=== PATIENT | female | born 1990 | race Caucasian/White ===

== ENCOUNTER 2023-04-20 09:56 | Outpatient (REF) | payer MEDICAID, SELFPAY ==
[2023-04-20 11:35] LABS: Hematocrit 37.4 % (37.0-47.0); Hemoglobin 12.6 g/dl (12.0-16.0); Mean Corpuscular HGB Conc 33.7 g/dl (31.0-35.0); Mean Corpuscular Hemoglobin 31.1 pg (27.0-33.0); Mean Corpuscular Volume 92.3 fL (80.0-98.0); Mean Platelet Volume 10.5 fL (9.4-12.3); Platelet Count 235 X10*3/uL (160-400); Red Blood Count 4.05 X10*6/uL (4.20-5.50); Red Cell Distribution Width 11.9 % (11.0-16.0); White Blood Count 3.8 X10*3/uL (4.8-10.8)
[2023-04-20 12:39] LABS: Alanine Aminotransferase 11 U/L (0-31); Albumin Level 4.2 g/dL (3.5-5.0); Alkaline Phosphatase 42 U/L (39-117); Anion Gap 13 (12-20); Aspartate Amino Transferase 19 U/L (5-31); Bilirubin Total 0.6 mg/dL (0.0-1.0); Blood Urea Nitrogen 12 mg/dL (9-16); Calcium 9.4 mg/dL (8.4-10.2); Carbon Dioxide 23 mmol/L (22-29); Chloride 108 mmol/L (96-108); Estimated Glomerular Filt Rate > 60; Glucose Random 60 mg/dL (60-115); Iron 96 mcg/dL (30-160); Percent Iron Saturation 40 % (15-50); Potassium 4.2 mmol/L (3.3-5.1); Sodium 140 mmol/L (135-145); Total Iron Binding Capacity 238 mcg/dL (228-428); Total Protein 7.1 g/dL (6.5-8.0); Unsaturated Iron Binding 142 ug/dL
[2023-04-20 12:44] LABS: Ferritin 66 ng/mL (10-122); TSH reflex Free T4 1.74 uIU/mL (0.32-4.0)
[2023-04-21 19:17] LABS: Immunoglobulin A 229 mg/dL (47-310)
[2023-04-22 17:53] LABS: Transglutaminase IgA <1.0 U/mL
== END 2023-04-20 09:57 | disposition home or self-care (01) ==
LOC: HO.LAB 09:56
PROVIDERS: Visit Provider Internal Medicine
DX: R19.4 Change in bowel habit (principal); R10.9 Unspecified abdominal pain; A07.8 Other specified protozoal intestinal diseases
CPT/HCPCS: 36415; 80053; 82728; 82784; 83540; 84443; 85027; 86364

== ENCOUNTER 2023-04-20 09:56 | Outpatient (AMB) | payer MEDICAID, SELFPAY ==
--- NOTE | 2023-04-20 09:58 | A.OFFVIS_ITS ---
Intake Vital Signs 04/20/23 10:02 Height 5 ft 9 in Weight 141 lb 1.533 oz BMI 20.8 BP 117/58 L Blood Pressure Location Lt brachial Position Sitting Pulse 70 Intake Visit Reasons: inconsistent stools Intake Note: Lo presents in the office as a new patient for inconsistent stools. CC: Constipation and diarrhea, No blood when she has a BM. Pains in the stomach all the time. Sometimes she has acid reflux. Allergies lamotrigine [Lamictal] Allergy (Unknown, Verified 04/20/23 10:02) Unknown HPI HPI Comments History of Present Illness Details This is a 32y.o F with PMH of hypermobile EDS, POTS who is here for changes in bowel habits,, referred by [facility] (pt seeing them for work up of MCAS). Pt reports that on and off has had issues with bowel habits most of her life which she has attributed to part of the connective tissue disease. However, since 2017 has visited [place] multiple times and since then has been noticing more consistent RLQ pain with diarrhea and bloating. Notices bouts of diarrhea during the travel but continuing even now despite being back for more 6 months. Reports fluctuating diarrhea with bloating and constipation that occurs 1-2 times a week, last 2-3 days. Pt unable to report if abd pain gets better same or worse with defecation. No documented fevers or chills. Has been noticing that appetite goes down too with this bout . No unintenional weight loss. Reports that had extensive stool studies done through [facility] for these sx and O&P was positive for blastocystis sp. [facility] Social History Household Members: Family Alcohol intake: current Alcohol intake frequency: holidays/special occasions only Patient Tobacco Use Status: Current someday Tobacco user Substance Use Type: Marijuana Review of Systems Const All systems reviewed & are unremarkable except as noted in HPI and below Physical Exam Vital Signs: Last Vital Signs Pulse 70 04/20/23 10:02 BP 117/58 L 04/20/23 10:02 BMI result Body Mass Index 20.8 Gen appear: NAD HEENT: nonicteric, no cervical lymphadenopathy Chest: CTA CVS: Regular S1/S2 Abd: soft, nontender, nondistended, bowel sounds + Ext: no peripheral edema Neuro: A/Ox3, noted to move all extremities spontaneously Psych: interacting appropriately Assessment & Plan Assessment & Plan (1) Abdominal pain: Code(s): R10.9 - Unspecified abdominal pain (2) Change in bowel habit: Code(s): R19.4 - Change in bowel habit (3) Blastocystis hominis infection: Code(s): A07.8 - Other specified protozoal intestinal diseases Plan Differentials include symptomatic blastocystis infection, post-infectious IBS, SIBO jai given EDS, celiac disease, dietary intolerance, malabsorption, hyperthyroidism, symptomatic gallstones. Discussed in depth with the pt that difficult to determine whether current sx truly due to blastocystis infection or whether it represents a red herri ng/colonization. Can consider flagyl as diagnostic and therapeutic trial to see if sx improve. This is also one of the Abx therapy that can be used for SIBO, so could help empirically tx that as well. Pt reports having a script of flagyl 250 TID x 10 days already through her PCP. In addition, work up ordered for other possible etiologies as above. Pt was also advised to bring a sx diary at next visit. Depending on response can discuss next steps including bidirectional endoscopy as well as referral to specialized center ([facility] for [facility] [place] or [place]). Follow up in 4 weeks. Orders: Orders Comprehensive Met. Panel Today R19.4 - Change in bowel habit TSH reflex Free T4 Today R19.4 - Change in bowel habit Transglutaminase IgA Today R19.4 - Change in bowel habit Calprotectin, Fecal Today R19.4 - Change in bowel habit CDiff Gene PCR Today R19.4 - Change in bowel habit US abdomen complete Today R10.9 - Unspecified abdominal pain Complete Blood Count no Diff Today R19.4 - Change in bowel habit Ferritin Today R19.4 - Change in bowel habit IRON PROFILE Today R19.4 - Change in bowel habit Immunoglobulin A Today R19.4 - Change in bowel habit Coding Level of Care Code New Pt Level 4 (41541) Diagnoses Abdominal pain R10.9 Change in bowel habit R19.4 Blastocystis hominis infection A07.8
[2023-04-20 10:02] VITALS: BP 117/58; PULSE 70; BMI 20.8
== END 2023-04-20 10:39 | disposition home or self-care (01) ==
PROVIDERS: Visit Provider Internal Medicine
DX: R10.9 Unspecified abdominal pain (principal); R19.4 Change in bowel habit; A07.8 Other specified protozoal intestinal diseases
CPT/HCPCS: 99204

== ENCOUNTER 2023-05-20 08:37 | Outpatient (REF) | payer MEDICAID, SELFPAY ==
--- NOTE | ~2023-05-20 | US_ITS ---
EXAMINATION: US ABDOMEN COMPLETE CLINICAL INFORMATION: Unspecified abdominal pain. COMPARISON: Ultrasound aorta 01/20/2017. TECHNIQUE: Real-time imaging of the abdominal viscera. FINDINGS: PANCREAS: Normal. ABDOMINAL AORTA: The proximal, mid, and distal segments are normal in caliber. INFERIOR VENA CAVA: Visualized portions are normal. LIVER: Normal. The liver is normal in size. The liver contour is normal. Parenchymal echogenicity is normal. No focal hepatic lesion. There is no intrahepatic biliary duct dilatation seen. GALLBLADDER: Normal. The gallbladder is physiologically distended without evidence of stones, sludge, polyps, wall thickening or pericholecystic fluid. COMMON BILE DUCT: Normal in caliber measuring 0.4 cm in diameter. RIGHT KIDNEY: Normal. No hydronephrosis. No renal calculi or focal parenchymal lesions. The kidney measures 10.7 cm in maximum dimension. LEFT KIDNEY: Normal. No hydronephrosis. No renal calculi or focal parenchymal lesions. The kidney measures 10.1 cm in maximum dimension. SPLEEN: Normal. The spleen measures 12.1 cm in maximum dimension. FREE FLUID: None. US/US abdomen complete IMPRESSION: Normal abdominal ultrasound.
[2023-05-26 18:03] LABS: Calprotectin, Fecal 26 mcg/g
== END 2023-05-20 08:38 | disposition home or self-care (01) ==
LOC: HO.US 08:37
PROVIDERS: PCP Family Medicine; Visit Provider Internal Medicine
DX: R10.9 Unspecified abdominal pain (principal); R19.4 Change in bowel habit
CPT/HCPCS: 76700; 83993

== ENCOUNTER 2023-06-15 14:44 | Outpatient (AMB) | payer MEDICAID, SELFPAY ==
--- NOTE | 2023-06-15 14:47 | MHC.OFFVIS ---
Intake Vital Signs 06/15/23 14:49 Height 5 ft 9 in Weight 147 lb BMI 21.7 BP 111/63 Blood Pressure Location Lt brachial Position Sitting Pulse 58 Intake Visit Reasons: Dr. Fulton PT follow up US Intake Note: Lo presents in the office today in follow up of US. CC: Patient with c/o constipation, diarrhea, occasional abdominal RUQ sharp pain, and acid reflux returns in follow up for US results. Allergies lamotrigine [Lamictal] Allergy (Unknown, Verified 06/15/23 14:51) Unknown HPI Dr. Fulton PT follow up US HPI Details 32-year-old female put on to my schedule unbeknownst to me who usually sees Dr. Aracelis rodríguez and is here for follow-up. Dr. Hsu is last note is as follows: Assessment & Plan (1) Abdominal pain: Code(s): R10.9 - Unspecified abdominal pain (2) Change in bowel habit: Code(s): R19.4 - Change in bowel habit (3) Blastocystis hominis infection: Code(s): A07.8 - Other specified protozoal intestinal diseases Plan Differentials include symptomatic blastocystis infection, post-infectious IBS, SIBO jai given EDS, celiac disease, dietary intolerance, malabsorption, hyperthyroidism, symptomatic gallstones. Discussed in depth with the pt that difficult to determine whether current sx truly due to blastocystis infection or whether it represents a red macias/colonization. Can consider flagyl as diagnostic and therapeutic trial to see if sx improve. This is also one of the Abx therapy that can be used for SIBO, so could help empirically tx that as well. Pt reports having a script of flagyl 250 TID x 10 days already through her PCP. In addition, work up ordered for other possible etiologies as above. Pt was also advised to bring a sx diary at next visit. Depending on response can discuss next steps including bidirectional endoscopy as well as referral to specialized center ([facility] for [facility] [place] or [facility]). Follow up in 4 weeks. Orders: Orders Comprehensive Met. Panel Today R19.4 - Change in bowel habit TSH reflex Free T4 Today R19.4 - Change in bowel habit Transglutaminase I gA Today R19.4 - Change in bowel habit Calprotectin, Feca l Today R19.4 - Change in bowel habit CDiff Gene PCR Today R19.4 - Change in bowel habit US abdomen complet e Today R10.9 - Unspecifie d abdominal pain Complete Blood Cou nt no Diff Today R19.4 - Change in bowel habit Ferritin Today R19.4 - Change in bowel habit IRON PROFILE Today R19.4 - Change in bowel habit Immunoglobulin A Today R19.4 - Change in bowel habit LABS: Laboratory Tests 04/20/23 04/20/23 05/20/23 11:07 11:07 10:15 WBC 3.8 L Hgb 12.6 Hct 37.4 Plt Count 235 Estimated GFR > 60 Ferritin 66 Total Bilirubin 0.6 AST 19 ALT 11 Alkaline Phosphata se 42 TSH 1.74 Stool Calprotectin 26 IgA 229 Tiss Transglutamin IgA <1.0 05/20/23-[address]: Stephenie Ayala DO ORDERED: CDiff Gene PCR Test Result Flag Refere nce Si te CDiff Gene PCR Test not performed Negativ e Formed speci mens are not appro priate for this te sting. Plea se contact [facility] ology within 2 day s of collection if further re view of this case is indicated. ULTRASOUND OF THE ABDOMEN 05/21/23 FINDINGS: PANCREAS: Normal. ABDOMINAL AORTA: The proximal, mid, and distal segments are normal in caliber. INFERIOR VENA CAVA: Visualized portions are normal. LIVER: Normal. The liver is normal in size. The liver contour is normal. Parenchymal echogenicity is normal. No focal hepatic lesion. There is no intrahepatic biliary duct dilatation seen. GALLBLADDER: Normal. The gallbladder is physiologically distended without evidence of stones, sludge, polyps, wall thickening or pericholecystic fluid. COMMON BILE DUCT: Normal in caliber measuring 0.4 cm in diameter. RIGHT KIDNEY: Normal. No hydronephrosis. No renal calculi or focal parenchymal lesions. The kidney measures 10.7 cm in maximum dimension. LEFT KIDNEY: Normal. No hydronephrosis. No renal calculi or focal parenchymal lesions. The kidney measures 10.1 cm in maximum dimension. SPLEEN: Normal. The spleen measures 12.1 cm in maximum dimension. FREE FLUID: None. US/US abdomen complete IMPRESSION: Normal abdominal ultrasound. TODAY'S VISIT We review the results and she is doing better at this time. She thinks it is all r/t her general connective disorder problems. We review the results and there was no abnormality to explain her symptoms uncovered by any of this testing. She requests to follow up with Dr. Fulton some time in October. [facility] Surgical History No pertinent past surgical history Social History Household Members: Family Alcohol intake: current Alcohol intake frequency: holidays/special occasions only Patient Tobacco Use Status: Current someday Tobacco user Substance Use Type: Marijuana Review of Systems Const Denies fatigue, Denies fever(s), Denies night sweats, Denies poor appetite and Denies weight loss Eyes Details: Glasses Reports requires corrective lenses ENT Reports Normal hearing present, Denies dental pain, Denies dysphagia, Denies hearing loss, Denies mouth pain, Denies odynophagia, Denies throat swelling, Denies tongue swelling and Reports other (Dentition adequate) Card Reports no additional complaints Resp Reports no additional complaints GI Denies abdominal pain, Denies melena, Reports bloating, Denies hematochezia, Denies constipation, Reports GI cramping, Denies dysphagia, Denies excessive flatus, Denies early satiety, Denies heartburn, Reports diarrhea, Denies nausea, Denies odynophagia, Denies vomiting and Denies hematemesis Skin/Breast Denies pruritus, Denies lesions, Denies rash and Denies jaundice Neuro Reports Normal hearing present and Denies Abnormal speech present Endo Denies fatigue Aller/Immun Denies throat swelling and Denies tongue swelling Physical Exam Vital Signs: Last Vital Signs Pulse 58 06/15/23 14:49 BP 111/63 06/15/23 14:49 BMI result Body Mass Index 21.7 Const General: cooperative, no acute distress, well developed and well groomed Nutritional Appearance: average body habitus and well nourished Orientation/consciousness: oriented to person, oriented to place and oriented to time Limitations: No language barrier HEENT Head: Yes normocephalic and Yes atraumatic Eyes General: appearance normal, both eyes and all related structures Pupils: Equal, round and reactive pupils present Neck Neck: Yes normal visual inspection and Yes no lymphadenopathy Thyroid: Thyroid normal Resp Effort & Inspection: able to speak in complete sentences Skin General skin exam: no rashes or lesions noted, turgor normal, skin not dry, no jaundice, No spider nevi and no striae Rashes: no rashes Nails: normal Neuro General: oriented to person, oriented to place and oriented to time Cranial nerves: Yes Equal, round and reactive pupils present and Yes Normal hearing present Speech: No Abnormal speech present Extrem General: Yes normal to inspection, No clubbing, No cyanosis and No edema Psych Appearance: grossly normal and well kempt Mental Status: mental status grossly normal Speech and movement: Normal speech and movement present Affect: normal affect Attitude: cooperative Thought process: Normal thought process present and not confabulating Thought content: Normal thought content present Insight: Fair insight present (Psych) Judgement: Fair judgement present (Psych) Results Reviewed Results Reviewed: Laboratory Tests 04/20/23 04/20/23 05/20/23 11:07 11:07 10:15 WBC 3.8 L Hgb 12.6 Hct 37.4 Plt Count 235 Estimated GFR > 60 Ferritin 66 Total Bilirubin 0.6 AST 19 ALT 11 Alkaline Phosphatase 42 TSH 1.74 Stool Calprotectin 26 IgA 229 Tiss Transglutamin IgA <1.0 05/20/23-1141 [facility] DR: Stephenie Santacruz DO ORDERED: CDiff Gene PCR Test Result Flag Reference Site CDiff Gene PCR Test not performed Negative Formed specimens are not appropriate for this testing. Please contact Microbiology within 2 days of collection if further review of this case is indicated. ULTRASOUND OF THE ABDOMEN 05/21/23 FINDINGS: PANCREAS: Normal. ABDOMINAL AORTA: The proximal, mid, and distal segments are normal in caliber. INFERIOR VENA CAVA: Visualized portions are normal. LIVER: Normal. The liver is normal in size. The liver contour is normal. Parenchymal echogenicity is normal. No focal hepatic lesion. There is no intrahepatic biliary duct dilatation seen. GALLBLADDER: Normal. The gallbladder is physiologically distended without evidence of stones, sludge, polyps, wall thickening or pericholecystic fluid. COMMON BILE DUCT: Normal in caliber measuring 0.4 cm in diameter. RIGHT KIDNEY: Normal. No hydronephrosis. No renal calculi or focal parenchymal lesions. The kidney measures 10.7 cm in maximum dimension. LEFT KIDNEY: Normal. No hydronephrosis. No renal calculi or focal parenchymal lesions. The kidney measures 10.1 cm in maximum dimension. SPLEEN: Normal. The spleen measures 12.1 cm in maximum dimension. FREE FLUID: None. US/US abdomen complete IMPRESSION: Normal abdominal ultrasound. Assessment & Plan Assessment & Plan (1) Abdominal pain: Code(s): R10.9 - Unspecified abdominal pain (2) Change in bowel habit: Code(s): R19.4 - Change in bowel habit Plan We review the results and she is doing better at this time. She thinks it is all r/t her general connective disorder problems. We review the results and there was no abnormality to explain her symptoms uncovered by any of this testing. She requests to follow up with Dr. Fulton some time in October. Coding Level of Care Code Est Pt Level 3 (13956) Diagnoses Abdominal pain R10.9 Change in bowel habit R19.4
[2023-06-15 14:49] VITALS: BP 111/63; PULSE 58; BMI 21.7
== END 2023-06-15 15:20 | disposition home or self-care (01) ==
PROVIDERS: PCP Family Medicine; Visit Provider Nurse Practitioner
DX: R10.9 Unspecified abdominal pain (principal); R19.4 Change in bowel habit
CPT/HCPCS: 99213

== ENCOUNTER → 2023-06-15 14:44 | Outpatient (BNVA) | payer MEDICAID, SELFPAY | PROVIDERS: PCP Family Medicine; Visit Provider Nurse Practitioner | DX: R19.4 Change in bowel habit (principal); R10.9 Unspecified abdominal pain | CPT/HCPCS: 99212 ==

== ENCOUNTER 2023-10-06 14:04 | Outpatient (AMB) | payer MEDICAID, SELFPAY ==
--- NOTE | 2023-10-06 14:07 | A.OFFVIS_ITS ---
Intake Vital Signs 10/06/23 14:08 Height 5 ft 9 in Weight 145 lb 8.081 oz BMI 21.5 BP 109/58 L Blood Pressure Location Lt brachial Position Sitting Pulse 65 Intake Visit Reasons: follow up Intake Note: Lo presents in the office as a follow up. CC: She states that she is still having some concerns and she has an outcome with taking an antibiotic. She has a recent diagnosis of MCAS and states she has a food diary to share with you. Entertainment Musician Required: No Allergies lamotrigine [Lamictal] Allergy (Unknown, Verified 10/06/23 14:08) Unknown HPI HPI Comments History of Present Illness Details This is a 32y.o F with PMH of hypermobile EDS, POTS who is here for changes in bowel habits, referred by [facility] (pt seeing them for work up of MCAS). Pt reports that on and off has had issues with bowel habits most of her life which she has attributed to part of the connective tissue disease. However, since 2016 has visited [place] multiple times and since then has been noticing more consistent RLQ pain with diarrhea and bloating. Notices bouts of diarrhea during the travel but continuing even now despite being back for more 6 months. Reports fluctuating diarrhea with bloating and constipation that occurs 1-2 times a week, last 2-3 days. Pt unable to report if abd pain gets better same or worse with defecation. No documented fevers or chills. Has been noticing that appetite goes down too with this bout . No unintenional weight loss. Reports that had extensive stool studies done through [facility] for these sx and O&P was positive for blastocystis sp. 10/06/23: Here for follow up. Doing better. Seeing PT and says she feels better energy levels. Also ended up taking flagyl for blastocystis in Jul 2023. While she was on flagyl for 10 days the BMs were formed. However after completing flagyl feels more constipated. Also tells me diagnosis of MCAS made based on what PCP told her however has not been seen by [facility] yet. Seeing Blanche Clemente next week. Started on antihistamines by PCP and initially noticed improvement to allergic to multiple food and environmental allergens which leads to earaches and scratchy throat and flushing. Also reports increasing crampy pain and borgorygmi with this. Now with Loratidine 10mg and famotidine 10mg BID since 3 weeks ago these sx responded well to it until she had some dairy a week ago. BMs are also more runny. Increased famotidine 20 BID yest. Has not noticed much improvement so far. 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 Also being worked up for MCAS by her data collection specialist. Some response to Flagyl transiently. Also interested in ? Dairy intolerance. Will be seeing Blanche Clemente DISPLAY DESIGNER OUTSIDE next week for further clarity on the diagnosis of MCAS and management as needed. Will request records. Reviewed in detail that overall sx suggestive of DGBI and these are not uncommon in pts with EDS. Can consider neuromodulation with TCA in future once immunology work up completed. In the meantime, HIDA for biliary type pain. Also reviewed indication of CTE for small bowel evaluation which pt would like to hold off at this time. Depending on response can discuss next steps including bidirectional endoscopy as well as referral to specialized center ([facility] for [facility] [place] or [facility]). Follow up in 6 weeks. Orders: Orders NM hepatobiliary w pharm Today R10.11 - Right upper quadrant pain Coding Level of Care Code Est Pt Level 4 (06259) Diagnoses Abdominal pain R10.9 Change in bowel habit R19.4 Dane-Danlos syndrome Q79.60 RUQ cramping R10.11
[2023-10-06 14:08] VITALS: BP 109/58; PULSE 65; BMI 21.5
== END 2023-10-06 15:06 | disposition home or self-care (01) ==
PROVIDERS: PCP Family Medicine; Visit Provider Internal Medicine
DX: R10.9 Unspecified abdominal pain (principal); R19.4 Change in bowel habit; Q79.60 Ehlers-Danlos syndrome, unspecified; R10.11 Right upper quadrant pain
CPT/HCPCS: 99214

== ENCOUNTER → 2023-10-06 14:04 | Outpatient (BNVA) | payer MEDICAID, SELFPAY | PROVIDERS: PCP Family Medicine; Visit Provider Internal Medicine | DX: R10.11 Right upper quadrant pain (principal); R19.7 Diarrhea, unspecified; R14.0 Abdominal distension (gaseous); R19.4 Change in bowel habit; Q79.60 Ehlers-Danlos syndrome, unspecified | CPT/HCPCS: 99212 ==

== ENCOUNTER → 2023-10-22 08:00 | Outpatient (REF) | payer MEDICAID, SELFPAY ==
--- NOTE | ~2023-10-22 | NM_ITS ---
EXAMINATION: BILIARY TRACT IMAGING STUDY WITH CCK CLINICAL INFORMATION: Right upper quadrant pain.. COMPARISON: No previous biliary scan is available for comparison. Abdominal ultrasound dated 05/20/2023 is available for comparison.. TECHNIQUE: Serial gamma scintillation camera images were obtained over the abdomen for a total observation period of 90 minutes following the intravenous administration of 5 mCi Tc-99m Mebrofenin. FINDINGS: There is good concentration of activity in the liver by 5 minutes post injection. Biliary activity is visualized by 9 minutes. The gallbladder is well visualized by 50 minutes. Small bowel is well visualized by 20 minutes. At 60 minutes post radiopharmaceutical injection, a 30-minute infusion of 1.3 micrograms Sincalide was then begun and an additional 40 minutes of images were obtained. There is good emptying of the gallbladder. By the end of the study there is good clearance of activity from the liver and visualization of diffuse small bowel activity. The calculated gallbladder ejection fraction is 68% (normal gallbladder ejection fraction is greater than 35%). NM/NM hepatobiliary w pharm IMPRESSION: Visualization of the gallbladder is evidence of a patent cystic duct and strong evidence against the diagnosis of acute cholecystitis. The common bile duct is patent. Gallbladder emptying and ejection fraction are normal. Liver function appears normal.
== END ==
LOC: HO.NUCMED 08:00
PROVIDERS: PCP Family Medicine; Visit Provider Internal Medicine
DX: R10.11 Right upper quadrant pain (principal)
CPT/HCPCS: 78227; A9537; J2805